=== PATIENT | female | born 2000 | race Caucasian/White ===

== ENCOUNTER 2021-02-19 14:01 | Emergency (ER) | payer MEDICAID ==
[~2021-02-19] VITALS: Ht 152.4 cm; Wt 54.4 kg
--- NOTE | 2021-02-19 14:40 | ED Lower Extremity ---
General Chief Complaint: Lower Extremity Stated Complaint: L BIG TOE PAIN Nursing Triage Note: PT AMB TO TRIAGE WITH COMPLAINT OF LEFT BIG TOE PAIN. STATES IS PAINFUL TO WALK ON. DENIES INJURY. Source: patient Exam Limitations: no limitations History of Present Illness Date Seen by Provider: Feb 19, 2021 Time Seen by Provider: 14:25 Initial Comments This is a well-appearing 20-year-old female who presents to the ER for complaints of left great toe pain. States that she kicked a box approximately 3 days ago and has been having increasing pain anytime she tries to ambulate. States she has not taken anything for pain prior to arrival. Allergies and Home Medications Allergies Coded Allergies: No Known Drug Allergies (Unverified , 02/19/21) Patient Home Medication List Home Medication List Reviewed: Yes Review of Systems Constitutional: no symptoms reported EENTM: no symptoms reported Respiratory: no symptoms reported Cardiovascular: no symptoms reported Gastrointestinal: no symptoms reported LMP: Feb 07, 2021 Control/STD Prophylaxis: None Musculoskeletal: see HPI Skin: no symptoms reported Psychiatric/Neurological: No Symptoms Reported Past Wkkukmm-Sngvho-Uwmyqy Hx Patient Social History Tobacco Use?: No Use of E-Cig and/or Vaping dev: Yes Use of E-Cig and/or Vaping Gio: Current Everyday User Substance use?: No Alcohol Use?: No Pt feels they are or have been: No Physical Exam Vital Signs Vital Signs - First Documented 02/19/21 14:09 Pulse 81 Resp 17 B/P (MAP) 118/77 (91) Pulse Ox 99 O2 Delivery Room Air Capillary Refill : Less Than 3 Seconds Height, Weight, BMI Height: '" Weight: lbs. oz. kg; 23.00 BMI Method: General Appearance: WD/WN, no apparent distress HEENT: PERRL/EOMI Neck: full range of motion, normal inspection Progress/Results/Core Measures Results/Orders My Orders Orders - RACHEL BIGGS APRN Foot, Right, 3 View (02/19/21 14:28) Foot, Left, 3 Views (02/19/21 14:47) Vital Signs/I&O 02/19/21 14:09 Pulse 81 Resp 17 B/P (MAP) 118/77 (91) Pulse Ox 99 O2 Delivery Room Air Blood Pressure Mean: 91 Departure Impression Primary Impression: Contusion of toe Departure-Patient Inst. Referrals: NO,LOCAL PHYSICIAN (PCP/Family) Primary Care Physician Patient Instructions: Minor Contusion ED Add. Discharge Instructions: Plan: 1. Use ice 20 minutes at a time for swelling and pain. 2. May take Tylenol and Ibuprofen as needed for pain per package. 3. Follow up with your doctor for any persistent symptoms. 4. Return for any new or concerning symptoms. All discharge instructions reviewed with patient and/or family. Voiced understanding. RACHEL BIGGS [employer]ER Feb 19, 2021 14:40
--- NOTE | 2021-02-19 15:15 | Diagnostic Imaging Report ---
INDICATION: Pain. Three views were obtained. FINDINGS: The alignment is normal. There is no fracture or dislocation. Soft tissues are unremarkable. IMPRESSION: No acute fracture or dislocation. Dictated by: Dictated on workstation # [id number]
[2021-02-19 15:38] VITALS: BP 118/77
== END 2021-02-19 15:38 | disposition home or self-care (01) ==
LOC: ER 14:05
DX: S90.112A Contusion of left great toe without damage to nail, initial encounter (principal); F17.290 Nicotine dependence, other tobacco product, uncomplicated; W22.8XXA Striking against or struck by other objects, initial encounter
CPT/HCPCS: 73630

== ENCOUNTER 2021-03-23 18:20 | Emergency (ER) | payer MEDICAID ==
[~2021-03-23] VITALS: Ht 180 cm; Wt 58.0 kg
[2021-03-23 18:37] VITALS: BP 122/80
--- NOTE | 2021-03-23 18:46 | ED EENT ---
History of Present Illness General Chief Complaint: Oral/Throat Problems Stated Complaint: SORE THROAT Nursing Triage Note: AMB TO ED WITH C/O SORETHROAT FOR 3 DAYS. NOW C/O THROAT BEING ITHEY HAS NOT TAKEN ANYTHING FOR PAIN. HAD COVID 3 MONTHS AGO. Source: patient Exam Limitations: no limitations History of Present Illness Date Seen by Provider: Mar 23, 2021 Time Seen by Provider: 18:30 Initial Comments 20yoF with PMH of strep throat with 1 week of nasal congestion and 3 days of sore throat, worse with swallowing. H/o tonsil stones that she coughs up at times. No fever, n/v/d, facial tenderness, no other recent illness. Was told to leave work yesterday and that she needed a doctor's note to go back. Had COVID 3 months ago. Allergies and Home Medications Allergies Coded Allergies: No Known Drug Allergies (Unverified , 02/19/21) Patient Home Medication List Home Medication List Reviewed: Yes Review of Systems Review of Systems Constitutional: No chills, No fever Eyes: Denies Blurred Vision Ears: Denies Pain Nose: congestion Mouth: denies pain Throat: pain; denies swelling, denies hoarse, denies muffled; painful swallowing Respiratory: no symptoms reported; No cough Cardiovascular: no symptoms reported Gastrointestinal: No abdominal pain Musculoskeletal: no symptoms reported Skin: no symptoms reported Neurological: No Symptoms Reported Hematologic/Lymphatic: No Symptoms Reported Immunological/Allergic: no symptoms reported All Other Systems Reviewed Negative Unless Noted: Yes Past Vtdhibl-Rzhaew-Ryvvae Hx Patient Social History Use of E-Cig and/or Vaping dev: Yes E-Cig or Vaping type used: Nicotine Substance use?: No Alcohol Use?: No Past Medical History Last Menstrual Period: Mar 02, 2021 Physical Exam Vital Signs Vital Signs - First Documented 03/23/21 18:37 Temp 37.0 Pulse 89 Resp 18 B/P (MAP) 122/80 (94) Pulse Ox 89 Height, Weight, BMI Height: '" Weight: lbs. oz. kg; 17.00 BMI Method: General Appearance: WD/WN, no apparent distress Eyes: bilateral eye normal inspection, bilateral eye PERRL, bilateral eye EOMI Ears: bilateral ear auricle normal, bilateral ear canal normal Nose: normal inspection Mouth/Throat: normal mouth inspection; No pharynx tenderness, No tongue swollen, No tonsillar exudate, No trismus, No uvula swelling, No voice changes; other (erythematous oropharynx) Neck: non-tender, full range of motion, supple, normal inspection Cardiovascular: regular rate, rhythm, no edema, no murmur Respiratory: chest non-tender, lungs clear, normal breath sounds, no respiratory distress, no accessory muscle use Gastrointestinal: normal bowel sounds, non tender, soft; No distended, No guarding, No rebound Neurologic/Psychiatric: no motor/sensory deficits, alert, normal mood/affect Skin: normal color, warm/dry Progress/Results/Core Measures Results/Orders My Orders Orders - JADE ANTONY MD Dexamethasone Tablet (Decadron Tablet) (03/23/21 18:54) Vital Signs/I&O 03/23/21 18:37 Temp 37.0 Pulse 89 Resp 18 B/P (MAP) 122/80 (94) Pulse Ox 89 Blood Pressure Mean: 94 Progress Progress Note : Progress Note 20-year-old female with above history coming in due to a sore throat. ABCs were intact and vitals were stable on presentation. Physical exam reassuring, and her oropharynx is mildly erythematous without any swelling, uvula deviation, neck tenderness, or any red flags for sore throat. He is afebrile, and is low risk for strep throat via [facility] criteria, so no testing or antibiotics given. She recently had Covid, and I believe it would be very unlikely for her to get this again this soon. Likely just a viral pharyngitis. Discharged home in stable condition with strict return precautions Departure Impression Primary Impression: Pharyngitis Qualified Codes: J02.9 - Acute pharyngitis, unspecified Disposition: HOME, SELF-CARE Condition: Stable Departure-Patient Inst. Decision time for Depature: 18:57 Referrals: NO,LOCAL PHYSICIAN (PCP/Family) Primary Care Physician Patient Instructions: Viral Pharyngitis (DC) Add. Discharge Instructions: You were seen in the emergency department for your sore throat. You do not have strep throat or any other concerning infections, and I believe that it safe for you to go to work unless you develop a fever. Take ibuprofen 40 mg every 6 hours as needed for pain in your throat. Drink plenty of fluids. All discharge instructions reviewed with patient and/or family. Voiced understanding. Work/School Note: Work Release Form Date Seen in the Emergency Department: Mar 23, 2021 Return to Work: Mar 23, 2021 Restrictions: No Restrictions JADE ANTONY MD Mar 23, 2021 18:46
[2021-03-23] MEDS ORDERED: dexAMETHasone 6 MG TAB (DECADRON) PO STA (18:54)
== END 2021-03-23 19:02 | disposition home or self-care (01) ==
LOC: EDUNIT# 18:20 → ER 18:22
DX: J02.9 Acute pharyngitis, unspecified (principal); F17.290 Nicotine dependence, other tobacco product, uncomplicated; Z86.16 Personal history of COVID-19
CPT/HCPCS: 99283